=== PATIENT | female | born 1975 | race Caucasian/White ===

== ENCOUNTER → 2016-04-19 | Outpatient (CLI) | payer BC ==
--- NOTE | 2016-04-19 14:03 | EST ---
DATE OF SERVICE: 04/19/16. AGE: 40Y SEX: F HT: 68" WT: 128 lbs. Protocol Michael: X Other: Stage: 3 Dur. of Exercise: 8:00 *Heart Rate Blood Pressure *Rest: 89 Rest: 91/71 * *Max. Achieved: 166 Maximum BP: 137/65 85% PMHR: 153 100% PMHR: 180 *METS: 8.3 INDICATIONS: Palpitations, shortness of breath. MEDICATIONS: Tramadol p.r.n., Amoxicillin. The test is being done for evaluation of palpitations and some shortness of breath. Baseline EKG showed sinus rhythm with normal AL interval and QRS duration. Blood pressure at rest is 91/71 with pulse rate of 89. Patient walked on the Michael protocol for 8 minutes, achieving a maximum heart rate of 166 with a blood pressure 137/65. EKGs taken during and after the exercise did not reveal any significant changes from the baseline. Patient did not experience any chest pain, no arrhythmias were noted. FINAL IMPRESSION: 1. Negative stress test. 2. Patient did not experience any chest pain. 3. No arrhythmias were noted. 4. Patient's exercise capacity is fair.
== END | disposition home or self-care (01) ==
LOC: RADNMMAIN 10:33
PROVIDERS: ATTEND Family Medicine
DX: R07.9 Chest pain, unspecified (principal); R00.0 Tachycardia, unspecified
CPT/HCPCS: 93017; 93270; 93271

== ENCOUNTER → 2017-05-11 | Outpatient (CLI) | payer BC ==
--- NOTE | 2017-05-18 11:33 | MM ---
Reason for exam: clinical finding. Last mammogram was performed 3 years and 6 months ago. History: Patient history of other cancer. Retro-pectoral silicone gel implants, 2008. Indicated problem(s): pain in the left breast. Physical Findings: Nurse did not find any significant physical abnormalities on exam. MG 3D Diag Mammo Imp W/Cad NORMA Bilateral CC, MLO, and ID view(s) were taken. Prior study comparison: November 06, 2013, bilateral MG diagnostic mammo w CAD NORMA. The breast tissue is heterogeneously dense. This may lower the sensitivity of mammography. No significant new findings when compared with previous films. These results were verbally communicated with the patient and result sheet given to the patient on 05/11/17. ASSESSMENT: Benign, BI-RAD 2 RECOMMENDATION: Routine screening mammogram of both breasts in 1 year.
== END | disposition home or self-care (01) ==
LOC: RADMAMWWP 08:53
PROVIDERS: ATTEND Family Medicine
DX: N64.4 Mastodynia (principal)
CPT/HCPCS: 77066; G0279

== ENCOUNTER 2018-01-04 11:30 | Emergency (ER) | payer OTHER, BC ==
[2018-01-04] MEDS ORDERED: SODIUM CHLORIDE 0.9% 1,000 ML IV STA ×2 (12:22)
[2018-01-04 13:16] LABS: Basophils % (A) 0 %; Eosinophils # (A) 0.1 k/uL (0-0.7); Eosinophils % (A) 1 %; HCT 44.3 % (34.0-46.0); Lymphocytes # (A) 1.7 k/uL (1.0-4.8); Lymphocytes % (A) 19 %; MCH 30.7 pg (25.0-35.0); MCHC 33.9 g/dL (31.0-37.0); MCV 90.8 fL (80.0-100.0); Mean Platelet Volume 6.9; Monocytes # (A) 0.4 k/uL (0-1.0); Monocytes % (A) 4 %; Neutrophils # (A) 6.9 k/uL (1.3-7.7); Neutrophils % (A) 76 %; Platelet Count 228 k/uL (150-450); RBC 4.88 m/uL (3.80-5.40); RDW 11.9 % (11.5-15.5); WBC 9.1 k/uL (3.8-10.6)
[2018-01-04 13:21] LABS: INR 1.2 (<1.2); Partial Thromboplastin Time 24.5 sec (22.0-30.0); Prothrombin Time 11.3 sec (9.0-12.0)
[2018-01-04 13:25] LABS: ALT 17 U/L (9-52); AST 25 U/L (14-36); Albumin 4.2 g/dL (3.5-5.0); Alkaline Phosphatase 52 U/L (38-126); Anion Gap 10 mmol/L; Blood Urea Nitrogen 14 mg/dL (7-17); Calcium 9.2 mg/dL (8.4-10.2); Carbon Dioxide 24 mmol/L (22-30); Chloride 105 mmol/L (98-107); Glucose 80 mg/dL (74-99); Magnesium 2.1 mg/dL (1.6-2.3); Potassium 4.3 mmol/L (3.5-5.1); Sodium 139 mmol/L (137-145); Total Bilirubin 1.6 mg/dL (0.2-1.3); Total Protein 6.9 g/dL (6.3-8.2)
[2018-01-04 13:40] LABS: Creatine Kinase 143 U/L (30-135)
--- NOTE | 2018-01-04 13:49 | ED ---
Fall HPI - General Chief Complaint: Fall Stated Complaint: seizure, Hx concussion Time Seen by Provider: 01/04/18 11:53 Source: patient, RN notes reviewed, old records reviewed Mode of arrival: wheelchair - History of Present Illness Initial Comments: This patient is a 42 year old female with CC of syncopal episode today while outside in her yard. She states that she then proceded to have uncontrollable movement of her limbs but was consicous of the fact she was moving. She then had symptoms subside and went back into her house. She reports when she fell, she hit her right eyebrow and cheek. She denies pain with EOM or visual changes. She states she then drove to ED for evaluation. She has a history of post concussion syndrome for which she sees neurologist for. She complains of headache at this time. She also relates to having intermittient chest pain for a few weeks. Unrelated to exertion. She is a physical therapist. She states she has been working out more to get back to work after she was disabled from post concussion syndrome. - Related Data Home Medications Medication Instructions Recorded Confirmed Amitriptyline HCl [Elavil] 10 mg PO HS 01/04/18 01/04/18 Amitriptyline HCl [Elavil] 25 mg PO HS 01/04/18 01/04/18 Biotin 5,000 mcg PO W/SUPPER 01/04/18 01/04/18 Cholecalciferol (Vitamin D3) 4,000 unit PO W/SUPPER 01/04/18 01/04/18 [Vitamin D3] Cyclobenzaprine [Flexeril] 10 mg PO TID PRN 01/04/18 01/04/18 L.acidoph,Paracasei, B.lactis 1 cap PO W/SUPPER 01/04/18 01/04/18 [Probiotic] Loratadine-Pseudoeph 5-120 mg 1 tab PO Q12HR PRN 01/04/18 01/04/18 [Claritin-D 12 HR] Pyridoxine HCl (Vitamin B6) 100 mg PO W/SUPPER 01/04/18 01/04/18 [Vitamin B-6] Sennosides [Senna] 8.6 mg PO W/SUPPER 01/04/18 01/04/18 Turmeric Root Extract [Turmeric] 500 mg PO W/SUPPER 01/04/18 01/04/18 Allergies Allergy/AdvReac Type Severity Reaction Status Date / Time hydrocodone [From Vicodin] AdvReac Nausea & Verified 01/04/18 12:12 Vomiting Review of Systems ROS Statement: Those systems with pertinent positive or pertinent negative responses have been documented in the HPI. ROS Other: All systems not noted in ROS Statement are negative. Past Medical History Past Medical History: Cancer, Thyroid Disorder Additional Past Medical History / Comment(s): concussion syndrome, celiac History of Any Multi-Drug Resistant Organisms: None Reported Past Surgical History: Breast Surgery Additional Past Surgical History / Comment(s): clavical basal cell ca removed Past Psychological History: Depression Smoking Status: Never smoker Past Alcohol Use History: Occasional Past Drug Use History: None Reported General Exam - General Exam Comments Initial Comments: Well appearing alert and oriented 42 year old female, no distress. Limitations: no limitations General appearance: alert, in no apparent distress Head exam: Present: atraumatic, normocephalic, normal inspection Eye exam: Present: normal appearance, PERRL, EOMI, periorbital tenderness ( minor periorbital tenderness over R eye and maxilla. ), other. Absent: scleral icterus, conjunctival injection, periorbital swelling ENT exam: Present: normal exam, mucous membranes moist Neck exam: Present: normal inspection. Absent: tenderness, meningismus, lymphadenopathy Respiratory exam: Present: normal lung sounds bilaterally. Absent: respiratory distress, wheezes, rales, rhonchi, stridor Cardiovascular Exam: Present: regular rate, normal rhythm, normal heart sounds. Absent: systolic murmur, diastolic murmur, rubs, gallop, clicks GI/Abdominal exam: Present: soft, normal bowel sounds. Absent: distended, tenderness, guarding, rebound, rigid Back exam: Present: normal inspection Neurological exam: Present: alert, oriented X3, CN II-XII intact, normal gait Expanded Patient oriented to: Present: person, place, time Speech: Present: fluid speech Cranial nerves: EOM's Intact: Normal Sensory exam: Upper Extremity Light Touch: Normal, Lower Extremity Light Touch: Normal Motor strength exam: RUE: 5, LUE: 5, RLE: 5, LLE: 5 Eye Response: (4) open spontaneously Motor Response: (6) obeys commands Verbal Response: (5) oriented [place] Total: 15 Psychiatric exam: Present: normal affect, normal mood Course Vital Signs 01/04/18 01/04/18 11:38 14:34 Temperature 98.3 F 97.0 F L Pulse Rate 114 H 74 Respiratory 20 18 Rate Blood Pressure 105/70 110/55 O2 Sat by Pulse 98 100 Oximetry Medical Decision Making - Medical Decision Making Patient is a 42 year old female presents with syncopal epsidoe and questionable seziure activity. She had no ictal period, she did hit her R eyebrow and cheek area, minor swelling noted. No evidence of tongue lacerations. She had ful workup incluiding EKG, CXR, CT brain and facial bones. This was negative for any acute process. She was offered IV medications for headache, she later stated she wanted to go home to take ibuprofen. She was offered admission for evaluation by neurology for further studies such as EEG, and patient states she would like to go home and follw up with PCP and her neurology in [facility]. Patient has no weakness, and appears clinically well. She has been advised on strict return parameters. - Lab Data Result diagrams: 01/04/18 12:41 01/04/18 12:41 Lab Results 01/04/18 01/04/18 01/04/18 Range/Units 12:41 12:41 12:41 WBC 9.1 (3.8-10.6) k/uL RBC 4.88 (3.80-5.40) m/uL Hgb 15.0 (11.4-16.0) gm/dL Hct 44.3 (34.0-46.0) % MCV 90.8 (80.0-100.0) fL MCH 30.7 (25.0-35.0) pg MCHC 33.9 (31.0-37.0) g/dL RDW 11.9 (11.5-15.5) % Plt Count 228 (150-450) k/uL Neutrophils % 76 % Lymphocytes % 19 % Monocytes % 4 % Eosinophils % 1 % Basophils % 0 % Neutrophils # 6.9 (1.3-7.7) k/uL Lymphocytes # 1.7 (1.0-4.8) k/uL Monocytes # 0.4 (0-1.0) k/uL Eosinophils # 0.1 (0-0.7) k/uL Basophils # 0.0 (0-0.2) k/uL PT (9.0-12.0) sec INR (<1.2) APTT (22.0-30.0) sec Sodium 139 (137-145) mmol/L Potassium 4.3 (3.5-5.1) mmol/L Chloride 105 (98-107) mmol/L Carbon Dioxide 24 (22-30) mmol/L Anion Gap 10 mmol/L BUN 14 (7-17) mg/dL Creatinine 0.86 (0.52-1.04) mg/dL Est GFR (CKD-EPI)AfAm >90 (>60 ml/min/1.73 sqM) Est GFR (CKD-EPI)NonAf 84 (>60 ml/min/1.73 sqM) Glucose 80 (74-99) mg/dL Calcium 9.2 (8.4-10.2) mg/dL Magnesium 2.1 (1.6-2.3) mg/dL Total Bilirubin 1.6 H (0.2-1.3) mg/dL AST 25 (14-36) U/L ALT 17 (9-52) U/L Alkaline Phosphatase 52 (38-126) U/L Total Creatine Kinase 143 H (30-135) U/L CK-MB (CK-2) 1.0 (0.0-2.4) ng/mL CK-MB (CK-2) Rel Index 0.7 Troponin I <0.012 (0.000-0.034) ng/mL Total Protein 6.9 (6.3-8.2) g/dL Albumin 4.2 (3.5-5.0) g/dL Urine Color Urine Appearance (Clear) Urine pH (5.0-8.0) Ur Specific [place] (1.001-1.035) Urine Protein (Negative) Urine Glucose (UA) (Negative) Urine Ketones (Negative) Urine Blood (Negative) Urine Nitrite (Negative) Urine Bilirubin (Negative) Urine Urobilinogen (<2.0) mg/dL Ur Leukocyte Esterase (Negative) 01/04/18 01/04/18 Range/Units 12:41 13:58 WBC (3.8-10.6) k/uL RBC (3.80-5.40) m/uL Hgb (11.4-16.0) gm/dL Hct (34.0-46.0) % MCV (80.0-100.0) fL MCH (25.0-35.0) pg MCHC (31.0-37.0) g/dL RDW (11.5-15.5) % Plt Count (150-450) k/uL Neutrophils % % Lymphocytes % % Monocytes % % Eosinophils % % Basophils % % Neutrophils # (1.3-7.7) k/uL Lymphocytes # (1.0-4.8) k/uL Monocytes # (0-1.0) k/uL Eosinophils # (0-0.7) k/uL Basophils # (0-0.2) k/uL PT 11.3 (9.0-12.0) sec INR 1.2 H (<1.2) APTT 24.5 (22.0-30.0) sec Sodium (137-145) mmol/L Potassium (3.5-5.1) mmol/L Chloride (98-107) mmol/L Carbon Dioxide (22-30) mmol/L Anion Gap mmol/L BUN (7-17) mg/dL Creatinine (0.52-1.04) mg/dL Est GFR (CKD-EPI)AfAm (>60 ml/min/1.73 sqM) Est GFR (CKD-EPI)NonAf (>60 ml/min/1.73 sqM) Glucose (74-99) mg/dL Calcium (8.4-10.2) mg/dL Magnesium (1.6-2.3) mg/dL Total Bilirubin (0.2-1.3) mg/dL AST (14-36) U/L ALT (9-52) U/L Alkaline Phosphatase (38-126) U/L Total Creatine Kinase (30-135) U/L CK-MB (CK-2) (0.0-2.4) ng/mL CK-MB (CK-2) Rel Index Troponin I (0.000-0.034) ng/mL Total Protein (6.3-8.2) g/dL Albumin (3.5-5.0) g/dL Urine Color Yellow Urine Appearance Clear (Clear) Urine pH 6.0 (5.0-8.0) Ur Specific [place] 1.009 (1.001-1.035) Urine Protein Negative (Negative) Urine Glucose (UA) Negative (Negative) Urine Ketones 1+ H (Negative) Urine Blood Negative (Negative) Urine Nitrite Negative (Negative) Urine Bilirubin Negative (Negative) Urine Urobilinogen <2.0 (<2.0) mg/dL Ur Leukocyte Esterase Negative (Negative) 01/04/18 14:56 EKG shows normal sinus normal EKG noted. Ventricular rate of 70 bpm.. Intervals 152 ms. QRS ration 78. QTQTC's recent 6/420 ms. - Radiology Data Radiology results: report reviewed CXR is negative for any acute cardiopulmonary process. CT brain shows no acute intracranial abnormalities. CT facial bones was limited due to motion no evidence of fracture. Disposition Clinical Impression: Syncope Disposition: HOME SELF-CARE Condition: Good Instructions: Syncope (ED) Additional Instructions: Patient has follow-up with primary care physician and cardiology. Rest, remain hydrated. Return to emergency department if any alarming signs or symptoms occur. Is patient prescribed a controlled substance at d/c from ED?: No Referrals: Edu Small III, MD [Primary Care Provider] - 1-2 days Trent Sanchez MD [STAFF PHYSICIAN] - 1-2 days Time of Disposition: 14:48
[2018-01-04 13:53] LABS: Troponin I <0.012 ng/mL (0.000-0.034)
[2018-01-04 14:08] LABS: Appearance,Urine Clear (Clear); Bilirubin,Urine Negative (Negative); Blood,Urine Negative (Negative); Color,Urine Yellow; Glucose,Urine (UA) Negative (Negative); Ketones,Urine 1+ (Negative); Leukocyte Esterase,Urine Negative (Negative); Nitrite,Urine Negative (Negative); Protein,Urine Negative (Negative); Specific Gravity,Urine 1.009 (1.001-1.035); Urobilinogen,Urine <2.0 mg/dL (<2.0)
--- NOTE | 2018-01-04 14:11 | CT ---
EXAMINATION TYPE: CT facial bones wo con DATE OF EXAM: 01/04/2018 COMPARISON: None HISTORY: Syncope or possible seizure today. Right cheek injury. CT DLP: 606.3 mGycm Automated exposure control for dose reduction was used. TECHNIQUE: CT scan of the sinuses is performed without contrast, axial images are obtained, coronal r eformatted images are also reviewed. FINDINGS: Exam is limited by motion and dental artifact. Grossly the paranasal sinuses appear to be clear. There is a slight nasal septal deviation. Visualiz ed intraorbital structures are intact. Assessment of the thyroid cartilage or hyoid bone nondiagnosti c due to motion. Oropharynx grossly symmetric. Nasopharynx has a normal appearance. Parotid glands have a symmetric appearance. IMPRESSION: 1. Limited exam due to motion demonstrates no definite acute fracture.
--- NOTE | 2018-01-04 14:13 | CT ---
EXAMINATION TYPE: CT brain wo con DATE OF EXAM: 01/04/2018 COMPARISON: None HISTORY: Syncope or possible seizure today. Right cheek injury. CT DLP: 1121.01 mGycm. Automated Exposure Control for Dose Reduction was Utilized. TECHNIQUE: CT scan of the head is performed without contrast. FINDINGS: There is no acute intracranial hemorrhage, mass effect, or midline shift identified. The ventricles and sulci are within normal limits in size. The globes are intact and the visualized sin uses are clear. IMPRESSION: No acute intracranial hemorrhage, mass effect, or midline shift is seen.
--- NOTE | 2018-01-04 14:25 | XR ---
EXAMINATION TYPE: XR chest 2V DATE OF EXAM: 01/04/2018 COMPARISON: NONE TECHNIQUE: PA and lateral views submitted. HISTORY: Syncope FINDINGS: The lungs are clear and there is no pneumothorax, pleural effusion, or focal pneumonia. Hypertrophi c change involving the vertebral column noted. No overt failure. IMPRESSION: 1. No acute process.
[2018-01-04] MEDS ORDERED: KETOROLAC 30 MG/ML 1 ML VIAL IVP STA (14:35)
[2018-01-04] MEDS ORDERED: ORPHENADRINE 30 MG/ML 2 ML VIAL IVP STA (14:36)
[2018-01-04 14:37] VITALS: BP 110/55; PULSE 74; RESP 18; TEMP 97
== END 2018-01-04 15:02 | disposition home or self-care (01) ==
LOC: EC 11:30
DX: R55 Syncope and collapse (principal); R56.9 Unspecified convulsions; R07.9 Chest pain, unspecified; R51 Headache; R22.0 Localized swelling, mass and lump, head; Z85.828 Personal history of other malignant neoplasm of skin; Z87.820 Personal history of traumatic brain injury; Z79.899 Other long term (current) drug therapy; Z88.5 Allergy status to narcotic agent; W19.XXXA Unspecified fall, initial encounter; Y92.89 Other specified places as the place of occurrence of the external cause
CPT/HCPCS: 36415; 70450; 70486; 71046; 80053; 81003; 82550; 82553; 83735; 84484; 85025; 85610; 85730; 93005; 96360; 96361; 99285

== ENCOUNTER → 2018-02-10 | Outpatient (CLI) | payer OTHER ==
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
== END | disposition home or self-care (01) ==
LOC: RADXRMAIN 09:25
PROVIDERS: ATTEND Orthopaedic Surgery
DX: M48.061 Spinal stenosis, lumbar region without neurogenic claudication (principal); M46.86 Other specified inflammatory spondylopathies, lumbar region; G95.89 Other specified diseases of spinal cord; M54.16 Radiculopathy, lumbar region; M54.12 Radiculopathy, cervical region
CPT/HCPCS: 72052; 72114

== ENCOUNTER → 2018-02-21 | Outpatient (CLI) | payer BC ==
--- NOTE | 2018-02-21 14:44 | EST ---
EXERCISE STRESS AGE: 42 SEX: F HT: 68" WT: 132 PROTOCOL: Michael STAGE: 3 DURATION OF EXERCISE: 8:00 HEART RATE REST: 80 BLOOD PRESSURE REST: 102/75 MAXIMUM HEART RATE ACHIEVED: 154 MAXIMUM BLOOD PRESSURE: 154/71 85% MPHR: 151 100% MPHR: 178 METS: 9.7 INDICATIONS: Syncope. CLINICAL INFORMATION: Baseline rhythm is sinus mechanism, rate of 80, right axis deviation, RSR prime, baseline blood pressure 102/75 mmHg. Patient exercised on Michael protocol for 8 minute, reaching peak rate 154 beats per minute which is equal to 86% maximum predicted heart rate. Peak blood pressure 154/71 mmHg. Test was terminated due to fatigue. There was no chest pain. Electrocardiograph monitoring revealed no evidence of diagnostic ischemic ST deviation. CONCLUSION: 1. Normal electrocardiographic response to exercise. 2. No symptoms of chest discomfort. [id number] / IJN: [id number] /
== END | disposition home or self-care (01) ==
LOC: RADNMMAIN 08:35
PROVIDERS: ATTEND Family Medicine
DX: R07.9 Chest pain, unspecified (principal); R55 Syncope and collapse
CPT/HCPCS: 93017

== ENCOUNTER → 2018-04-03 | Outpatient (CLI) | payer OTHER ==
--- NOTE | 2018-04-03 15:09 | XR ---
EXAMINATION TYPE: XR chest 2V DATE OF EXAM: 04/03/2018 COMPARISON: Chest x-ray January 04, 2018. HISTORY: Previous cervical spine surgery. TECHNIQUE: Frontal and lateral views of the chest are obtained. FINDINGS: There is no focal air space opacity, pleural effusion, or pneumothorax seen. The cardiac silhouette size is within normal limits. The osseous structures are intact. IMPRESSION: No acute cardiopulmonary process. No significant change from prior.
== END ==
LOC: RADXRMAIN 14:45
PROVIDERS: ATTEND Nurse Practitioner Family
DX: M54.2 Cervicalgia (principal)
CPT/HCPCS: 71046

== ENCOUNTER → 2018-07-04 | Outpatient (CLI) | payer OTHER ==
--- NOTE | 2018-07-05 09:19 | XR ---
EXAMINATION TYPE: XR cervical spine w flex/ext DATE OF EXAM: 07/04/2018 TECHNIQUE: Frontal, lateral, oblique, swimmers, and open mouth view of the cervical spine are obtaine d. Flexion and extension lateral views were also performed. HISTORY: TDR COMPARISON: 02/10/2018 FINDINGS: The cervical spine is visualized in its entirety from C1 thru the top of T1 level, it is s atisfactory in alignment without evidence of acute fracture or dislocation. The pre-vertebral soft t issue appears within normal limits. The C1-C2 articulation is within normal limits on the open mouth view. There is an intervertebral disc cage placed at the C5-C6 intervertebral level. Very minimal 1 mm ante rolisthesis is seen on C5 on C6 on the flexion images with no anterolisthesis in the neutral or exten cristi positions. Oblique images are within normal limits with no radiographic neural foraminal narrowi ng. IMPRESSION: No acute fracture or malalignment is seen in the cervical spine. Minimal grade 1 anterol isthesis of C5 on C6 in flexion only (1 mm anterolisthesis).
== END | disposition home or self-care (01) ==
LOC: RADXRMAIN 16:24
PROVIDERS: ATTEND Orthopaedic Surgery
DX: Z47.89 Encounter for other orthopedic aftercare (principal); M43.12 Spondylolisthesis, cervical region; Z98.890 Other specified postprocedural states
CPT/HCPCS: 72052

== ENCOUNTER → 2019-01-11 | Outpatient (CLI) | payer BC ==
--- NOTE | 2019-01-11 09:28 | XR ---
EXAMINATION TYPE: XR lumbar spine 2 or 3V DATE OF EXAM: 01/11/2019 CLINICAL HISTORY: Arthrodesis status. TECHNIQUE: Frontal, lateral, and oblique images of the lumbar spine are obtained. COMPARISON: 02/10/2018 FINDINGS: Postsurgical fixation at L4-5 is seen with radicular screws, fixation rods and interverteb ral disc cage. No new vertebral body height loss or malalignment. Intervertebral disc space narrowing at L1-L2. Multilevel small anterior osteophytes. Slight dextroscoliosis of the lumbar spine There ar e 5 lumbar type vertebral bodies identified. The visualized overlying bowel is nondilated. IMPRESSION: Surgical fixation of L4-L5 with intervertebral disc age placed. No new malalignment nor c ompression deformity. Degenerative disc disease of the upper lumbar spine is mild.
== END | disposition home or self-care (01) ==
LOC: RADXRMAIN 08:37
PROVIDERS: ATTEND Orthopaedic Surgery
DX: M51.36 Other intervertebral disc degeneration, lumbar region (principal); Z98.890 Other specified postprocedural states; Z98.1 Arthrodesis status
CPT/HCPCS: 72100

== ENCOUNTER → 2019-01-17 | Outpatient (CLI) | payer OTHER, BC ==
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
== END | disposition home or self-care (01) ==
LOC: RADCTMAIN 13:45
PROVIDERS: ATTEND Orthopaedic Surgery
DX: Z98.1 Arthrodesis status (principal)
CPT/HCPCS: 72131

== ENCOUNTER → 2019-03-01 | Outpatient (CLI) | payer BC, OTHER ==
--- NOTE | 2019-03-01 09:30 | XR ---
EXAMINATION TYPE: XR lumbar spine 2 or 3V DATE OF EXAM: 03/01/2019 CLINICAL HISTORY: Z 98.1. Arthrodesis status. TECHNIQUE: Frontal and lateral images of the lumbar spine are obtained. COMPARISON: 01/11/2019 FINDINGS: There has been interval exchange of the intervertebral disc age on the exam of 01/11/2019 f or a new intervertebral disc cages at L4-L5. Pedicular screws and fixation rods are again seen. There is a very mild dextroscoliosis of the lumbar spine. 5 lumbar type vertebral bodies are seen. No new vertebral body height loss or malalignment. L1-L2 intervertebral disc space narrowing and small anter ior osteophytes are present. IMPRESSION: 1. Interval exchange of an intervertebral disc cage at L4-L5. Alignment is maintained. 2. Mild degenerative disc disease of L1-L2.
== END | disposition home or self-care (01) ==
LOC: RADXRMAIN 08:25
PROVIDERS: ATTEND Orthopaedic Surgery
DX: Z47.89 Encounter for other orthopedic aftercare (principal); M51.36 Other intervertebral disc degeneration, lumbar region; Z98.1 Arthrodesis status
CPT/HCPCS: 72100

== ENCOUNTER 2019-04-02 08:32 | Day surgery (SDC) | payer BC ==
[~2019-04-02 08:32] MED LIST: SODIUM CHLORIDE 0.9% 1,000 ML IV SCH
[2019-04-02 08:59] VITALS: TEMP 97.8
[2019-04-02] MEDS ORDERED: SODIUM CHLORIDE 0.9% 500 ML 500 ML IV ONE (08:59)
--- NOTE | 2019-04-02 12:20 | P.PCN ---
Preoperative Diagnosis: Diagnosis Recurrent syncope Twelve-lead ECG shows sinus rhythm normal WI narrow QRS normal ST segments no delta waves no epsilon waves normal QT interval Tilt table test Baseline blood pressure 100/58 mmHg, baseline 176 beats a minute Patient was tilted upright at an angle of 70 per protocol This is no significant change in her heart rate significant change in blood pressure No symptoms noted She is laid supine at the end of the procedure Impression Patient with recurrent episodes of syncope Normal twelve-lead ECG No evidence for neurocardiogenic syncope dysautonomia or postural tachycardia syndrome on tilt table testing to Suggest Proceed with event monitoring and assessment of chronic structure and function Follow with Dr. Hdz Follow-up with Dr. maldonado
[2019-04-02 16:47] VITALS: BP 110/55; PULSE 77; RESP 16
== END 2019-04-02 11:03 | disposition home or self-care (01) ==
LOC: CATHEP 08:32
PROVIDERS: ATTEND Internal Medicine Clinical Cardiac Electrophysiology
DX: R55 Syncope and collapse (principal); E06.3 Autoimmune thyroiditis; F32.9 Major depressive disorder, single episode, unspecified; Z79.1 Long term (current) use of non-steroidal anti-inflammatories (NSAID); Z88.5 Allergy status to narcotic agent; Z79.899 Other long term (current) drug therapy
CPT/HCPCS: 81025; 93660

== ENCOUNTER → 2019-05-08 | Outpatient (CLI) | payer BC ==
--- NOTE | 2019-05-08 09:42 | US ---
EXAMINATION TYPE: US thyroid st tissue head/neck DATE OF EXAM: 05/08/2019 COMPARISON: NONE CLINICAL HISTORY: E04.1 Thyroid Nodule. Follow up thyroid nodule. Not on thyroid meds. GLAND SIZE: Right Lobe: 5.3 x 2.1 x 1.6 cm Overall Parenchyma: homogenous Left Lobe: 4.3 x 1.3 x 1.2 cm Overall Parenchyma: homogeneous Isthmus Thickness: 0.2 cm NODULES RIGHT: # of nodules measured on right: 1 1. 2.3 x 1.6 x 1.3 cm hypoechoic nodule at the lower pole with well-defined margins. This nodule is wider than tall and shows intranodular vascularity. Prior size: 2.3 x 1.4 x 1.8 cm LEFT: # of nodules measured on left: 0 ISTHMUS: # of nodules measured in the isthmus: 0 Bilateral neck scanned, no evidence of lymphadenopathy. Right lobe appears enlarged. IMPRESSION: Enlargement right thyroid lobe with the stable nodularity which is nonspecific.
--- NOTE | 2019-05-09 10:46 | MM ---
Reason for exam: screening (asymptomatic). Last mammogram was performed 2 years ago. History: Patient has history of other cancer at age 32. Retro-pectoral silicone gel implants, 2008. Took hormonal contraceptives for 5 years. Took other hormone for 3 months. Physical Findings: A clinical breast exam by your physician is recommended on an annual basis and results should be correlated with mammographic findings. MG Screening Mammo Implant/CAD Bilateral CC and MLO view(s) were taken. Prior study comparison: May 11, 2017, bilateral MG 3d diag mammo imp w/cad NORMA. November 06, 2013, bilateral MG diagnostic mammo w CAD NORMA. The breast tissue is heterogeneously dense. This may lower the sensitivity of mammography. No suspicious abnormality. Bilateral retropectoral silicone implants. No significant changes when compared with prior studies. ASSESSMENT: Negative, BI-RAD 1 RECOMMENDATION: Routine screening mammogram of both breasts in 1 year.
== END | disposition home or self-care (01) ==
LOC: RADMAMWWP 09:06
PROVIDERS: ATTEND Family Medicine
DX: Z12.31 Encounter for screening mammogram for malignant neoplasm of breast (principal); E04.9 Nontoxic goiter, unspecified
CPT/HCPCS: 76536; 77067

== ENCOUNTER → 2020-02-06 | Outpatient (CLI) | payer OTHER ==
--- NOTE | 2020-02-06 15:56 | XR ---
EXAMINATION TYPE: XR cervical spine w flex/ext DATE OF EXAM: 02/06/2020 COMPARISON: 07/04/2018 HISTORY: 44-year-old female Z98.1, arthrodesis status TECHNIQUE: 7 views FINDINGS: No predental space widening or prevertebral soft tissue swelling. C5-C6 intervertebral disc prosthesis is redemonstrated. Positioning of the orthopedic hardware is unc hanged. There is similar trace 2 mm of anterolisthesis at neutral, unchanged. There is no significant accentuation on flexion but the subluxation corrects on extension. Mild degenerative disc disease throughout. Extension yields grade 1 retrolisthesis at C3-C4. Normal o dontoid view. There is mild bony neuroforaminal narrowing on both sides at C3-C4. IMPRESSION: 1. C5-C6 intervertebral disc prosthesis redemonstrated. 2. Trace 2 mm of anterolisthesis at this level on neutral, unchanged with flexion. However, this sofía ects with extension. 3. There seems to be a grade 1 retrolisthesis at C3-C4 that develops with extension. 4. Scattered mild spondylotic change.
--- NOTE | 2020-02-06 16:02 | XR ---
EXAMINATION TYPE: XR lumbosacral spine 7 views (including flexion and extension) DATE OF EXAM: 02/06/2020 Comparison: 03/01/2019 Clinical History: 44-year-old female Z98.1 arthrodesis status Findings: 5 lumbar type vertebral bodies. Dextroconvex scoliotic curvature centered at the mid lumbar spine. Th ere is L4-L5 posterior and anterior fusion change. Accentuated lumbar lordosis on neutral. Grade 1 re trolisthesis above the fusion at L3-L4. There is no change with flexion or extension though there is a slight development of retrolisthesis at L2-L3 with extension. Vertebral body heights are preserved . Impression: 1. Trace retrolisthesis that develops at L2-L3 with extension. 2. Fixed grade 1 retrolisthesis above the fusion at L3-L4. No dynamic subluxations seen here.
== END | disposition home or self-care (01) ==
LOC: RADXRMAIN 13:31
PROVIDERS: ATTEND Orthopaedic Surgery
DX: M43.16 Spondylolisthesis, lumbar region (principal); M47.812 Spondylosis without myelopathy or radiculopathy, cervical region; M50.822 Other cervical disc disorders at C5-C6 level; Z98.1 Arthrodesis status
CPT/HCPCS: 72052; 72110